=== PATIENT | female | born 1985 | race Caucasian/White ===

== ENCOUNTER 2017-08-14 08:44 | Emergency (ER) | payer OTHER ==
[2017-08-14] MEDS ORDERED: FLUCONAZOLE 100 MG TABLET PO STA (09:07)
[2017-08-14] MEDS ORDERED: FLUCONAZOLE 100 MG TABLET ONE (09:16)
--- NOTE | 2017-08-14 09:43 | ED Physician Documentation ---
PD HPI FEMALE - Stated complaint Stated Complaint: ALLERGIC REACTION - Chief complaint Chief Complaint: General - History obtained from History obtained from: Patient, Family - History of Present Illness Timing - onset: How many days ago (4) Timing - duration: Days (4) Timing - details: Gradual onset, Still present Associated symptoms: Vaginal pain Contributing factors: No: Similar symptoms before: Diagnosis (yeast vagninitis) Recently seen: Clinic (seen in the clinic and put on clinda) - Additional information Additional information: 32-year-old female who has acute vaginal itching and redness is much worse after starting Cleocin vaginally several days ago. She has taken 3 doses and feels the redness and itching are far worse. She is in a lot of discomfort. Review of Systems Constitutional: denies: Fever, Chills Respiratory: denies: Cough GI: denies: Nausea, Vomiting : reports: Other (The patient reports no foul smell or discharge to the vaginal area there is redness and severe itching but now is extending up to the buttocks.). denies: Dysuria, Frequency, Discharge Skin: reports: Rash Musculoskeletal: denies: Neck pain, Back pain, Extremity pain Neurologic: denies: Generalized weakness, Focal weakness, Numbness PD PAST MEDICAL HISTORY - Past Medical History Past Medical History: No - Past Surgical History /[employer]: section - Present Medications Home Medications: Ambulatory Orders Medication Instructions Recorded Confirmed #103/Iron Fumarate/FA 1 tab PO DAILY 08/14/17 08/14/17 [ Tablet] - Allergies Allergies/Adverse Reactions: Allergies Allergy/AdvReac Type Severity Reaction Status Date / Time No Known Drug Allergies Allergy Verified 08/14/17 09:00 - Social History Does the pt smoke?: No Smoking Status: Never smoker Does the pt drink ETOH?: Yes - Immunizations Immunizations are current?: Yes - POLST Patient has POLST: No PD ED PE NORMAL - Vitals Vital signs reviewed: Yes (Hypertensive tachycardic and tachypneic) - General General: Alert and oriented X 3, No acute distress, Well developed/nourished - HEENT HEENT: Atraumatic - Respiratory Respiratory: No respiratory distress - Female Female : Network Intelligence Analyst present (Lizette), Other (There is erythema confluent to the bertha-rectal area consistent with yeast dermatitis. ) - Derm Derm: Normal color, Warm and dry, No rash - Extremities Extremities: No deformity, No edema - Neuro Neuro: No motor deficit Eye Opening: Spontaneous Motor: Obeys Commands Verbal: Oriented GCS Score: 15 - Psych Psych: Normal mood, Normal affect Results - Vitals Vitals: Vital Signs - 24 hr 08/14/17 08:56 Temperature 36.8 C Heart Rate 110 H Respiratory 29 H Rate Blood Pressure 158/56 H O2 Saturation 99 Oxygen O2 Source Room air PD MEDICAL DECISION MAKING - ED course Complexity details: re-evaluated patient, considered differential, d/w patient, d/w family ED course: 32 y/o female with symptomatic yeast vaginitis is not improving on cleocin and she is given a dose of diflucan and she will start some monistat as well for symptom relief. Departure - Departure Disposition: 01 Home, Self Care Clinical Impression: Yeast infection involving the vagina and surrounding area Instructions: ED Vaginal Infec Fungal Tamika Follow-Up: ERIKA Hagan [Provider Group]
[2017-08-14 10:05] VITALS: BP 138/74
== END 2017-08-14 10:05 | disposition home or self-care (01) ==
LOC: ED 08:44
DX: B37.3 Candidiasis of vulva and vagina (principal)
CPT/HCPCS: 99283; A9270